=== PATIENT | male | born 1955 | race Hispanic/Latino ===

== ENCOUNTER 2021-11-05 20:59 | Observation (INO) | payer OTHER, MEDICARE ==
[2021-11-05] MEDS ORDERED: SODIUM CHLORIDE 0.9% 1000 ML 1,000 ML IV ONE (22:03)
[2021-11-05] MEDS ORDERED: PANTOPRAZOLE 40 MG INJ IV ONE (22:03)
[2021-11-05] MEDS ORDERED: ONDANSETRON 4 MG/2 ML INJ IV ONE (22:03)
[2021-11-05] MEDS ORDERED: MORPHINE 2 MG/1 ML INJ IV ONE (22:04)
--- NOTE | 2021-11-05 22:08 | Emergency Department Report ---
HPI - General Chief Complaint: Abdominal Pain Time Seen by Provider: 11/05/21 21:51 - HPI HPI: 7 days prior to arrival the patient had all of his teeth removed and had some implants placed. Today is the third day of the patient has been experiencing severe nonradiating clawing-like epigastric nonradiating abdominal pain associated with nausea and diaphoresis and one episode of diarrhea. The patient denies fever chills constipation chest pain shortness of breath or any other associated symptoms. Has not taken any medications for this other than Zofran which helped him. Nothing makes it worse. He has not been tolerating food. ED Past Medical Hx - Past Medical History Previous Medical History?: Yes Hx Hypertension: Yes Additional medical history: hernia - Medications Home Medications: Home Medications Medication Instructions Recorded Confirmed Last Taken Type DULoxetine [Cymbalta] 90 mg PO DAILY 11/05/21 11/05/21 3 Days Ago History ~11/02/21 Indomethacin [Indomethacin ER] 75 mg PO DAILY 11/05/21 11/05/21 3 Days Ago History ~11/02/21 Lisinopril [Zestril] 5 mg PO DAILY 11/05/21 11/05/21 3 Days Ago History ~11/02/21 Pramipexole [Mirapex] 1 mg PO DAILY 11/05/21 11/05/21 3 Days Ago History ~11/02/21 Pravastatin Sodium [Pravastatin] 10 mg PO DAILY 11/05/21 11/05/21 3 Days Ago History ~11/02/21 Pregabalin 1 tab PO QHS 11/05/21 11/05/21 3 Days Ago History ~11/02/21 Tamsulosin [Flomax] 1 tab PO DAILY 11/05/21 11/05/21 3 Days Ago History ~11/02/21 buPROPion [Wellbutrin] 100 mg PO BID 11/05/21 11/05/21 3 Days Ago History ~11/02/21 ED Review of Systems ROS: Stated complaint: ABDOMINAL PAIN W/NAUSEA AND VOMITING Other details as noted in HPI Comment: All other systems reviewed and negative Physical Exam - Physical Exam Vital Signs: Vital Signs 11/05/21 21:20 Temperature 98.2 F Pulse Rate 99 H Respiratory 16 Rate Blood Pressure 155/91 [Right] O2 Sat by Pulse 99 Oximetry Physical Exam: Physical Exam Constitutional: General: He is not in acute distress. Appearance: He is not diaphoretic. HENT: Head: Normocephalic. Eyes: Pupils: Pupils are equal, round, and reactive to light. Neck: Musculoskeletal: Normal range of motion. Cardiovascular: Rate and Rhythm: Normal rate and regular rhythm. Pulses: Intact distal pulses. Heart sounds: Normal heart sounds. No murmur. Pulmonary: Effort: No respiratory distress. Breath sounds: No wheezing or rales. Chest: Chest wall: No tenderness. Abdominal: General: There is no distension. Palpations: There is no mass. Tenderness: There is diffuse mild to moderate abdominal tenderness to palpation. There is no guarding or rebound. Musculoskeletal: Normal range of motion. Skin: General: Skin is warm and dry. Neurological: Mental Status: He is alert and oriented to person, place, and time. Psychiatric: Mood and Affect: Mood and affect normal. Cognition and Memory: Memory normal. Judgment: Judgment normal. ED Course Vital Signs 11/05/21 21:20 Temperature 98.2 F Pulse Rate 99 H Respiratory 16 Rate Blood Pressure 155/91 [Right] O2 Sat by Pulse 99 Oximetry - Reevaluation(s) Reevaluation #1: 11/06/21 01:03 or evaluation the patient still dry is not feeling well. His laboratories are concerning for an elevated white blood cell count. He also is seems acidotic with a low bicarb and also with an elevated BUN at 30 and a creatinine of 1.1 making him prerenal. His CAT scan of the abdomen was normal. His lipase was negative. Since he is now feeling better we will go ahead and admit him overnight for rehydration. ED Medical Decision Making - Lab Data Result diagrams: 11/05/21 22:24 11/05/21 22:24 Critical care attestation.: If time is entered above; I have spent that time in minutes in the direct care of this critically ill patient, excluding procedure time. ED Disposition Clinical Impression: Prerenal azotemia, Acute dehydration Disposition: 02 [facility]ORT TERM [facility] Is pt being admited?: Yes Does the pt Need Aspirin: No Condition: Fair Referrals: PRIMARY CARE, [Primary Care Provider] - 3-5 Days
--- NOTE | 2021-11-05 22:33 | Cat Scan Report ---
CT ABDOMEN AND PELVIS WITHOUT CONTRAST INDICATION / CLINICAL INFORMATION: Pt complains of abdominal pain with nausea and vomiting. TECHNIQUE: Axial CT images were obtained through the abdomen and pelvis without IV contrast. All CT scans at [facility] location are performed using CT dose reduction for ALARA by means of automated exposure control. COMPARISON: None available. FINDINGS: LOWER CHEST: No significant abnormality. LIVER: No significant abnormality. GALLBLADDER: Surgically absent. BILE DUCTS: No significant abnormality. PANCREAS: No significant abnormality. SPLEEN: No significant abnormality. ADRENALS: No significant abnormality. RIGHT KIDNEY/URETER: No significant abnormality. LEFT KIDNEY/URETER: No significant abnormality. STOMACH/SMALL BOWEL: No significant abnormality. COLON: No significant abnormality. APPENDIX: No significant abnormality. PERITONEUM: No free fluid. No free air. No fluid collection. LYMPH NODES: No significant adenopathy. VASCULATURE: No significant abnormality. URINARY BLADDER: No significant abnormality. REPRODUCTIVE ORGANS: No significant abnormality. ADDITIONAL FINDINGS: There are uncomplicated small fat-containing inguinal hernias. BONES: No significant abnormality IMPRESSION: 1. No significant abnormality to explain the patient's pain or nausea/vomiting. Signer Name: Gonzalez Escoto MD Signed: 11/05/2021 10:28 PM Workstation Name: [id number]
[2021-11-05 22:40] LABS: Basophils % (Auto) 0.4 % (0.0-1.8); Eosinophils # (Auto) 0.1 K/mm3 (0.0-0.4); Hematocrit 55.1 % (35.5-45.6); Hemoglobin 18.3 gm/dl (11.8-15.2); Lymphocytes # (Auto) 1.5 K/mm3 (1.2-5.4); Mean Corpuscular HGB Conc 33 % (32-34); Mean Corpuscular Volume 86 fl (84-94); Monocytes # (Auto) 1.1 K/mm3 (0.0-0.8); Monocytes % (Auto) 9.9 % (0.0-7.3); Platelet Count 209 K/mm3 (140-440); Red Blood Count 6.44 M/mm3 (3.65-5.03); Red Cell Distribution Width 14.4 % (13.2-15.2)
[2021-11-05 23:11] LABS: Alanine Aminotransferase 25 units/L (7-56); Albumin 4.1 g/dL (3.9-5); BUN/Creatinine Ratio 27; Bilirubin,Direct 0.3 mg/dL (0-0.2); Blood Urea Nitrogen 30 mg/dL (9-20); Hemolysis Index 7
[2021-11-06] MEDS ORDERED: ONDANSETRON 4 MG/2 ML INJ IV PRN (01:29)
[2021-11-06] MEDS ORDERED: ALBUTEROL 2.5 MG/3 ML NEBU IH PRN (01:29)
[2021-11-06] MEDS ORDERED: HYDROmorphone 1 MG/1 ML INJ IV PRN (01:29)
[2021-11-06] MEDS ORDERED: ACETAMINOPHEN 325 MG TAB PO PRN (01:29)
[2021-11-06] MEDS ORDERED: MORPHINE 2 MG/1 ML INJ IV PRN (01:29)
--- NOTE | 2021-11-06 01:36 | History and Physical Report ---
History of Present Illness Date of examination: 11/06/21 Date of admission: 11/06/21 Chief complaint: Abdominal pain nausea vomiting History of present illness: 65 years old male with past medical history of hypertension was brought to the emergency room because of abdominal pain as stated nausea and vomiting . patient had all of his teeth removed and had some implants placed. Today is the third day of the patient has been experiencing severe nonradiating clawing-like epigastric nonradiating abdominal pain associated with nausea and diaphoresis and one episode of diarrhea. The patient denies fever chills constipation chest pain shortness of breath or any other associated symptoms. Has not taken any medications for this other than Zofran which helped him. Nothing makes it worse. He has not been tolerating food. In the emergency room patient is found to have BUN of 30 creatinine 1.1, hemoglobin of 18.3 and hematocrit 55.1. So going to admit the patient we will put the patient on IV fluid Pepcid and Zofran Past History Past Medical History: hypertension, other ( hernia) Past Surgical History: Other ( hernia) Social history: no significant social history Family history: no significant family history Medications and Allergies Allergies Allergy/AdvReac Type Severity Reaction Status Date / Time No Known Allergies Allergy Verified 11/06/21 14:25 Home Medications Medication Instructions Recorded Confirmed Last Taken Type DULoxetine [Cymbalta] 90 mg PO DAILY 11/05/21 11/06/21 3 Days Ago History ~11/02/21 Indomethacin [Indomethacin ER] 75 mg PO DAILY 11/05/21 11/06/21 1 Week Ago History ~10/30/21 Lisinopril [Zestril] 5 mg PO DAILY 11/05/21 11/06/21 3 Days Ago History ~11/02/21 Pravastatin Sodium [Pravastatin] 10 mg PO DAILY 11/05/21 11/06/21 3 Days Ago History ~11/02/21 Pregabalin 75 mg PO QHS 11/05/21 11/06/21 3 Days Ago History ~11/02/21 Tamsulosin [Flomax] 0.4 mg PO DAILY 11/05/21 11/06/21 3 Days Ago History ~11/02/21 buPROPion [Wellbutrin] 200 mg PO QPM 11/05/21 11/06/21 3 Days Ago History ~11/02/21 Cyanocobalamin (Vitamin B-12) 2,500 mcg PO QDAY 11/06/21 11/06/21 4 Days Ago History [Vitamin B12] ~11/02/21 Dextran 70/Hypromellose/Pf [Cvs 1 drop OU QDAY 11/06/21 11/06/21 4 Days Ago History Natural Tears Drop] ~11/02/21 Metoprolol Xl [Metoprolol 25 mg PO QDAY 11/06/21 11/06/21 4 Days Ago History SUCCINATE ER TAB] ~11/02/21 Pramipexole [Mirapex] 0.5 mg PO QDAY 11/06/21 11/06/21 4 Days Ago History ~11/02/21 Pyridoxine HCl [Vitamin B-6 100MG 100 mg PO DAILY 11/06/21 11/06/21 4 Days Ago History TAB] ~11/02/21 Review of Systems All systems: negative Gastrointestinal: abdominal pain, nausea, vomiting Exam - Constitutional Vitals: Temp Pulse Resp BP Pulse Ox 98.2 F 99 H 16 155/91 98 11/05/21 21:20 11/05/21 21:20 11/05/21 21:20 11/05/21 21:20 11/05/21 22:29 General appearance: Present: no acute distress, well-nourished - EENT Eyes: Present: PERRL ENT: hearing intact, clear oral mucosa - Neck Neck: Present: supple, normal ROM - Respiratory Respiratory effort: normal Respiratory: bilateral: CTA - Cardiovascular Heart Sounds: Present: S1 & S2. Absent: rub, click - Extremities Extremities: pulses symmetrical, No edema Peripheral Pulses: within normal limits - Abdominal General gastrointestinal: Present: soft, non-tender, non-distended, normal bowel sounds Male genitourinary: Present: normal - Integumentary Integumentary: Present: clear, warm, dry - Musculoskeletal Musculoskeletal: gait normal, strength equal bilaterally - Psychiatric Psychiatric: appropriate mood/affect, intact judgment & insight - Neurologic Neurologic: CNII-XII intact, moves all extremities HEART Score - HEART Score Troponin: Troponin T < 0.010 ng/mL (0.00-0.029) 11/05/21 22:24 Results - Labs CBC & Chem 7: 11/05/21 22:24 11/05/21 22:24 Labs: Laboratory Last Values WBC 11.6 K/mm3 (4.5-11.0) H 11/05/21 22:24 RBC 6.44 M/mm3 (3.65-5.03) H 11/05/21 22:24 Hgb 18.3 gm/dl (11.8-15.2) H 11/05/21 22:24 Hct 55.1 % (35.5-45.6) H 11/05/21 22:24 MCV 86 fl (84-94) 11/05/21 22:24 MCH 28 pg (28-32) 11/05/21 22:24 MCHC 33 % (32-34) 11/05/21 22:24 RDW 14.4 % (13.2-15.2) 11/05/21 22:24 Plt Count 209 K/mm3 (140-440) 11/05/21 22:24 Lymph % (Auto) 13.0 % (13.4-35.0) L 11/05/21 22:24 [place] % (Auto) 9.9 % (0.0-7.3) H 11/05/21 22:24 Eos % (Auto) 1.0 % (0.0-4.3) 11/05/21 22:24 Baso % (Auto) 0.4 % (0.0-1.8) 11/05/21 22:24 Lymph # (Auto) 1.5 K/mm3 (1.2-5.4) 11/05/21 22:24 [place] # (Auto) 1.1 K/mm3 (0.0-0.8) H 11/05/21 22:24 Eos # (Auto) 0.1 K/mm3 (0.0-0.4) 11/05/21 22:24 Baso # (Auto) 0.0 K/mm3 (0.0-0.1) 11/05/21 22:24 Seg Neutrophils % 75.7 % (40.0-70.0) H 11/05/21 22:24 Seg Neutrophils # 8.8 K/mm3 (1.8-7.7) H 11/05/21 22:24 Sodium 137 mmol/L (137-145) 11/05/21 22:24 Potassium 4.0 mmol/L (3.6-5.0) 04/06/22 22:24 Chloride 99.9 mmol/L (98-107) 11/05/21 22:24 Carbon Dioxide 18 mmol/L (22-30) L 11/05/21 22:24 Anion Gap 23 mmol/L 11/05/21 22:24 BUN 30 mg/dL (9-20) H 11/05/21 22:24 Creatinine 1.1 mg/dL (0.8-1.3) 11/05/21 22:24 Estimated GFR > 60 ml/min 11/05/21 22:24 BUN/Creatinine Ratio 27 % 11/05/21 22:24 Glucose 116 mg/dL (75-100) H 11/05/21 22:24 Calcium 9.0 mg/dL (8.4-10.2) 11/05/21 22:24 Total Bilirubin 1.60 mg/dL (0.1-1.2) H 11/05/21 22:24 Direct Bilirubin 0.3 mg/dL (0-0.2) H 11/05/21 22:24 Indirect Bilirubin 1.3 mg/dL 11/05/21 22:24 AST 16 units/L (5-40) 11/05/21 22:24 ALT 25 units/L (7-56) 11/05/21 22:24 Alkaline Phosphatase 69 units/L (35-129) 11/05/21 22:24 Troponin T < 0.010 ng/mL (0.00-0.029) 11/05/21 22:24 Total Protein 7.1 g/dL (6.3-8.2) 11/05/21 22:24 Albumin 4.1 g/dL (3.9-5) 11/05/21 22:24 Albumin/Globulin Ratio 1.4 % 11/05/21 22:24 Lipase 9 units/L (13-60) L 11/05/21 22:24 - Imaging and Cardiology CT scan - abdomen: report reviewed Assessment and Plan VTE prophylaxis?: Mechanical Plan of care discussed with patient/family: Yes - Patient Problems (1) Abdominal pain Current Visit: Yes Status: Acute Plan to address problem: Admit the patient to the medical floor. Cardiac diet. D5 half-normal saline at the rate of 100 cc/h. Pepcid 20 mg IV every 12 hours. Zofran 4 mg IV every 6 hours as needed. Morphine 2 mg IV every 4 hours as needed (2) Nausea & vomiting Current Visit: Yes Status: Acute Plan to address problem: D5 half-normal saline at the rate of 100 cc/h. Pepcid 20 mg IV every 12 hours. Zofran 4 mg IV every 6 hours as needed. (3) Hypertension Current Visit: Yes Status: Acute Plan to address problem: Hydralazine 10 mg IV every 6 hours as needed. We continue the home medication (4) Acute dehydration Current Visit: Yes Status: Acute Plan to address problem: D5 half-normal saline at the rate of 100 cc/h. Recheck BMP in the morning (5) Prerenal azotemia Current Visit: Yes Status: Acute Plan to address problem: D5 half-normal saline at the rate of 100 cc/h. Recheck BMP in the morning (6) DVT prophylaxis Current Visit: Yes Status: Acute Plan to address problem: SCD for DVT prophylaxis. Pepcid 20 mg IV every 12 hours for GI prophylaxis. Patient is a full code
[2021-11-06] MEDS ORDERED: D5W/0.45% NACL 1,000 ML IV SCH (02:00)
[2021-11-06] MEDS ORDERED: PRAMIPEXOLE 0.5 MG TAB PO SCH ×2 (10:00→22:00)
--- NOTE | 2021-11-06 10:23 | Progress Note ---
Assessment and Plan Assessment and plan: -- Abdominal pain Current Visit: Yes Status: Acute Plan to address problem: Admit the patient to the medical floor. Cardiac diet. D5 half-normal saline at the rate of 100 cc/h. Pepcid 20 mg IV every 12 hours. Zofran 4 mg IV every 6 hours as needed. Morphine 2 mg IV every 4 hours as needed --Intractable nausea & vomiting Current Visit: Yes Status: Acute Plan to address problem: D5 half-normal saline at the rate of 100 cc/h. Pepcid 20 mg IV every 12 hours. Zofran 4 mg IV every 6 hours as needed. --Hypertension Current Visit: Yes Status: Acute Plan to address problem: Hydralazine 10 mg IV every 6 hours as needed. We continue the home medication -- Acute dehydration Current Visit: Yes Status: Acute Plan to address problem: D5 half-normal saline at the rate of 100 cc/h. Recheck BMP in the morning -- Prerenal azotemia Current Visit: Yes Status: Acute Plan to address problem: D5 half-normal saline at the rate of 100 cc/h. Recheck BMP in the morning --DVT prophylaxis Current Visit: Yes Status: Acute Plan to address problem: SCD for DVT prophylaxis. Pepcid 20 mg IV every 12 hours for GI prophylaxis. Patient is a full code Closely monitor patient and adjust management as needed Plan of care reviewed with the patient and his nurse Possible discharge home tomorrow if stable History Interval history: I have seen and examined the patient at the bedside Patient's chart and medications reviewed Patient was admitted with acute gastritis intractable nausea vomiting Still has epigastric pain and 102 vomitings Denies hematemesis or melena Vital signs reviewed Hospitalist Physical - Constitutional Vitals: Temp Pulse Resp BP Pulse Ox 97.6 F 96 H 18 149/93 99 11/06/21 02:43 11/06/21 02:43 11/06/21 02:43 11/06/21 02:43 11/06/21 03:05 General appearance: Present: no acute distress, well-nourished - EENT Eyes: Present: PERRL, EOM intact - Neck Neck: Present: supple, normal ROM - Respiratory Respiratory effort: normal Respiratory: bilateral: diminished, negative: rales, rhonchi, wheezing - Cardiovascular Rhythm: regular Heart Sounds: Present: S1 & S2 - Extremities Extremities: no ischemia, No edema - Abdominal General gastrointestinal: soft, non-tender, non-distended, normal bowel sounds - Integumentary Integumentary: Present: clear, warm - Psychiatric Psychiatric: appropriate mood/affect, cooperative - Neurologic Neurologic: moves all extremities HEART Score - HEART Score Troponin: Troponin T < 0.010 ng/mL (0.00-0.029) 11/05/21 22:24 Results - Labs CBC & Chem 7: 11/05/21 22:24 11/05/21 22:24 Labs: Laboratory Last Values WBC 11.6 K/mm3 (4.5-11.0) H 11/05/21 22:24 RBC 6.44 M/mm3 (3.65-5.03) H 11/05/21 22:24 Hgb 18.3 gm/dl (11.8-15.2) H 11/05/21 22:24 Hct 55.1 % (35.5-45.6) H 11/05/21 22:24 MCV 86 fl (84-94) 11/05/21 22:24 MCH 28 pg (28-32) 11/05/21 22:24 MCHC 33 % (32-34) 11/05/21 22:24 RDW 14.4 % (13.2-15.2) 11/05/21 22:24 Plt Count 209 K/mm3 (140-440) 11/05/21 22:24 Lymph % (Auto) 13.0 % (13.4-35.0) L 11/05/21 22: [place] % (Auto) 9.9 % (0.0-7.3) H 11/05/21 22:24 Eos % (Auto) 1.0 % (0.0-4.3) 11/05/21 22:24 Baso % (Auto) 0.4 % (0.0-1.8) 11/05/21 22:24 Lymph # (Auto) 1.5 K/mm3 (1.2-5.4) 11/05/21 22:24 [place] # (Auto) 1.1 K/mm3 (0.0-0.8) H 11/05/21 22:24 Eos # (Auto) 0.1 K/mm3 (0.0-0.4) 11/05/21 22:24 Baso # (Auto) 0.0 K/mm3 (0.0-0.1) 11/05/21 22:24 Seg Neutrophils % 75.7 % (40.0-70.0) H 11/05/21 22:24 Seg Neutrophils # 8.8 K/mm3 (1.8-7.7) H 11/05/21 22:24 Sodium 137 mmol/L (137-145) 11/05/21 22:24 Potassium 4.0 mmol/L (3.6-5.0) 11/05/21 22:24 Chloride 99.9 mmol/L (98-107) 11/05/21 22:24 Carbon Dioxide 18 mmol/L (22-30) L 11/05/21 22:24 Anion Gap 23 mmol/L 11/05/21 22:24 BUN 30 mg/dL (9-20) H 11/05/21 22:24 Creatinine 1.1 mg/dL (0.8-1.3) 11/05/21 22:24 Estimated GFR > 60 ml/min 11/05/21 22:24 BUN/Creatinine Ratio 27 % 11/05/21 22:24 Glucose 116 mg/dL (75-100) H 11/05/21 22:24 Calcium 9.0 mg/dL (8.4-10.2) 11/05/21 22:24 Total Bilirubin 1.60 mg/dL (0.1-1.2) H 11/05/21 22:24 Direct Bilirubin 0.3 mg/dL (0-0.2) H 11/05/21 22:24 Indirect Bilirubin 1.3 mg/dL 11/05/21 22:24 AST 16 units/L (5-40) 11/05/21 22:24 ALT 25 units/L (7-56) 11/05/21 22:24 Alkaline Phosphatase 69 units/L (35-129) 11/05/21 22:24 Troponin T < 0.010 ng/mL (0.00-0.029) 11/05/21 22:24 Total Protein 7.1 g/dL (6.3-8.2) 11/05/21 22:24 Albumin 4.1 g/dL (3.9-5) 11/05/21 22:24 Albumin/Globulin Ratio 1.4 % 11/05/21 22:24 Lipase 9 units/L (13-60) L 11/05/21 22:24 Active Medications - Current Medications Current Medications: Generic Name Dose Route Start Last Admin Trade Name Freq PRN Reason Stop Dose Admin Acetaminophen 650 mg 11/06/21 01:29 Acetaminophen 325 Mg Tab PO Q4H PRN Pain MILD(1-3)/Fever >100.5/SMITH Albuterol 2.5 mg 11/06/21 01:29 Albuterol 2.5 Mg/3 Ml Nebu IH Q3HRT PRN Shortness Of Breath Bupropion HCl 100 mg 11/06/21 10:00 Bupropion 100 Mg Tab PO BID [facility] Duloxetine HCl 90 mg 11/06/21 10:00 Duloxetine 30 Mg Cap PO DAILY [facility] Famotidine 20 mg 11/06/21 10:00 Famotidine 20 Mg/2 Ml Inj IV BID R[facility] Hydromorphone HCl 0.5 mg 11/06/21 01:29 Hydromorphone 1 Mg/1 Ml Inj IV Q3H PRN Pain , Severe (7-10) Dextrose/Sodium Chloride 1,000 mls @ 125 mls/hr 11/06/21 02:00 11/06/21 06:38 D5/0.45ns IV 125 mls/hr DIRECT RY Administration Lisinopril 5 mg 11/06/21 10:00 Lisinopril 5 Mg Tab PO DAILY [facility] Morphine Sulfate 2 mg 11/06/21 01:29 Morphine 2 Mg/1 Ml Inj IV Q4H PRN Pain, Moderate (4-6) Ondansetron HCl 4 mg 11/06/21 01:29 Ondansetron 4 Mg/2 Ml Inj IV Q8H PRN Nausea And Vomiting Pramipexole Dihydrochloride 1 mg 11/06/21 10:00 Pramipexole 0.5 Mg Tab PO DAILY [facility] Pravastatin Sodium 10 mg 11/06/21 10:00 Pravastatin 20 Mg Tab PO DAILY [facility] Pregabalin 75 mg 11/06/21 22:00 Pregabalin 75 Mg Cap PO QHS RY Sodium Chloride 10 ml 11/06/21 10:00 Sodium Chloride 0.9% 10 Ml Flush Syringe IV BID RY Sodium Chloride 10 ml 11/06/21 01:29 Sodium Chloride 0.9% 10 Ml Flush Syringe IV PRN PRN LINE FLUSH Tamsulosin HCl 0.4 mg 11/06/21 10:00 Tamsulosin 0.4 Mg Cap PO DAILY R[facility]
--- NOTE | 2021-11-06 10:43 | Electrocardiograph Report ---
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
[2021-11-06] MEDS: PRAVASTATIN 20 MG TAB PO SCH (11:38)
[2021-11-06] MEDS: TAMSULOSIN 0.4 MG CAP PO SCH (11:39)
[2021-11-06] MEDS: FAMOTIDINE 20 MG/2 ML INJ IV SCH ×2 (11:39→15:46)
[2021-11-06] MEDS: DULoxetine 30 MG CAP PO SCH (11:39)
[2021-11-06] MEDS: LISINOPRIL 5 MG TAB PO SCH (11:40)
[2021-11-06] MEDS: buPROPion 100 MG TAB PO SCH ×2 (15:16→21:55)
[2021-11-06] MEDS: FAMOTIDINE 20 MG TAB PO SCH ×2 (15:16→21:55)
[2021-11-06] MEDS ORDERED: PREGABALIN 75 MG CAP PO SCH (22:00)
[2021-11-07 06:10] LABS: Basophils % (Auto) 0.6 % (0.0-1.8); Eosinophils # (Auto) 0.2 K/mm3 (0.0-0.4); Eosinophils % (Auto) 2.2 % (0.0-4.3); Hematocrit 49.3 % (35.5-45.6); Hemoglobin 16.5 gm/dl (11.8-15.2); Lymphocytes # (Auto) 1.1 K/mm3 (1.2-5.4); Lymphocytes % (Auto) 13.9 % (13.4-35.0); Mean Corpuscular HGB Conc 34 % (32-34); Mean Corpuscular Volume 87 fl (84-94); Monocytes # (Auto) 0.7 K/mm3 (0.0-0.8); Monocytes % (Auto) 9.4 % (0.0-7.3); Platelet Count 165 K/mm3 (140-440); Red Blood Count 5.69 M/mm3 (3.65-5.03); Red Cell Distribution Width 14.7 % (13.2-15.2)
[2021-11-07 06:31] LABS: BUN/Creatinine Ratio 12; Blood Urea Nitrogen 12 mg/dL (9-20); Calcium 9.1 mg/dL (8.4-10.2); Hemolysis Index 6
--- NOTE | 2021-11-07 08:19 | Discharge Summary ---
Providers - Providers Date of Admission: 11/06/21 01:29 Date of discharge: 11/07/21 Attending physician: KEVYN SAUCEDO Primary care physician: DIESEL MECH[employer]IC APPRENTICE Hospitalization Reason for admission: Intractable nausea vomiting abdominal pain/acute gastritis Condition: Fair Pertinent studies: CT abdomen and pelvis did not show any abnormalities Hospital course: 65-year-old male patient with significant past medical history of hypertension was admitted through emergency room with intractable nausea vomiting and abdominal pain Initial work-up with CT abdomen and pelvis did not show any abnormalities Patient was admitted symptomatically managed with antiemetics IV fluids, pain medications and antacids Patient symptoms slowly but gradually improved Started on clear liquids initially later advance the diet as tolerated Today patient symptoms significantly improved denies any nausea vomiting abdominal pain significantly improved Patient is hemodynamically stable for discharge Advised him spicy and cheesy foods Advised to See Primary Care Physician, GI if symptoms recur Patient verbalized understanding Hemodynamically and clinically stable at discharge Discharge diagnosis: -- Abdominal pain Current Visit: Yes Status: Acute Resolved --Intractable nausea & vomiting Current Visit: Yes Status: Acute Improved --Hypertension Current Visit: Yes Status: Acute Stable -- Acute dehydration Current Visit: Yes Status: Acute Resolved -- Prerenal azotemia Current Visit: Yes Status: Acute Resolved -Morbid obesity; BMI 60.1/advised weight reduction -Peripheral neuropathy- Stable at discharge Disposition: 01 HOME / SELF CARE / HOMELESS Final Discharge Diagnosis (Prints w/discharge instructions): Acute gastritis improved. abdominal pain resolved. Intractable nausea vomiting resolved. Hypertension. Acute dehydration resolved. Morbid obesity; BMI 60.1. History of BPH stable. Hypertension. History of gout. Neuropathy Time spent for discharge: 35 minutes Core Measure Documentation - Palliative Care Palliative Care/ Comfort Measures: Not Applicable - Core Measures Any of the following diagnoses?: none Exam - Constitutional Vitals: Temp Pulse Resp BP Pulse Ox 98.5 F 79 18 111/70 96 11/07/21 05:15 11/07/21 05:15 11/07/21 05:15 11/07/21 05:15 11/07/21 07:46 General appearance: Present: no acute distress, well-nourished, obese (Morbidly obese) - EENT Eyes: Present: PERRL, EOM intact - Neck Neck: Present: supple, normal ROM - Respiratory Respiratory effort: normal Respiratory: bilateral: diminished, negative: rales, rhonchi, wheezing - Cardiovascular Rhythm: regular Heart Sounds: Present: S1 & S2 - Extremities Extremities: no ischemia, No edema - Abdominal General gastrointestinal: Present: soft, non-tender, non-distended, normal bowel sounds - Integumentary Integumentary: Present: clear, warm - Musculoskeletal Musculoskeletal: strength equal bilaterally - Psychiatric Psychiatric: appropriate mood/affect, cooperative - Neurologic Neurologic: moves all extremities Plan Activity: advance as tolerated Diet: other (Cardiac diet) Additional Instructions: If you have worsening symptoms contact MD or go to the nearest emergency room as needed. Advance diet as tolerated. If you continue to have acidity/gastritis, see private civil estimator for further evaluation and management. Advised diet modification, exercise as tolerated and weight reduction when you are medically stable Follow up with: PRIMARY CARE, [Primary Care Provider] - 3-5 Days Prescriptions: Dicyclomine [Bentyl] 10 mg PO QID PRN #20 capsule PRN Reason: Pain , Severe (7-10) Famotidine [Pepcid] 20 mg PO BID #60 tablet
[2021-11-07] MEDS: DULoxetine 30 MG CAP PO SCH (09:26)
[2021-11-07] MEDS: buPROPion 100 MG TAB PO SCH (09:28)
[2021-11-07] MEDS: FAMOTIDINE 20 MG TAB PO SCH (09:29)
[2021-11-07] MEDS: LISINOPRIL 5 MG TAB PO SCH (09:29)
[2021-11-07] MEDS: PRAVASTATIN 20 MG TAB PO SCH (09:30)
[2021-11-07 09:31] VITALS: BP 117/78
[2021-11-07] MEDS: TAMSULOSIN 0.4 MG CAP PO SCH (09:51)
== END 2021-11-07 10:31 | disposition home or self-care (01) ==
LOC: ED 20:59 → INTOOBSV 11-06 01:29 → 3A 11-06 01:29
PROVIDERS: ADMIT Hospitalist; ATTEND Internal Medicine
DX: E86.0 Dehydration (principal); R10.9 Unspecified abdominal pain; R11.2 Nausea with vomiting, unspecified; I10 Essential (primary) hypertension; E66.01 Morbid (severe) obesity due to excess calories; G62.9 Polyneuropathy, unspecified; R79.89 Other specified abnormal findings of blood chemistry; Z79.899 Other long term (current) drug therapy; Z98.890 Other specified postprocedural states; Z68.44 Body mass index [BMI] 60.0-69.9, adult
CPT/HCPCS: 36415; 74176; 80048; 80076; 83690; 84484; 85025; 93005; 96361; 96374; 96375; 99285; C9113; G0378; J2270; J2405; J7030; J7070; J3490; Q0162